=== PATIENT | male | born 1970 | race Caucasian/White ===

== ENCOUNTER 2020-11-15 08:58 | Emergency (ER) | payer BC ==
[~2020-11-15] VITALS: Wt 104.3 kg
[2020-11-15 10:10] LABS: BASO # 0.1 10*3/uL (0.0-0.1); BASO % 0.8 % (0.0-1.0); EOS # 0.1 10*3/uL (0.0-0.4); EOS % 0.7 % (1.0-4.0); HEMATOCRIT 49.9 % (42.0-52.0); LYMPH # 1.5 10*3/uL (1.3-4.4); MEAN CORPUSCULAR HGB 31.5 pg (27.0-31.0); MEAN CORPUSCULAR HGB CONC 33.5 g/dl (33.0-37.0); MEAN PLATELET VOLUME 8.8 fl (9.6-12.3); MONO # 0.9 10*3/uL (0.1-1.0); MONO % 7.7 % (3.0-9.0); NEUT # 9.5 10*3/uL (2.3-7.9); NEUT % 78.2 % (47.0-73.0); PLATELET COUNT AUTOMATED 344 10*3/uL (130-400); RED BLOOD COUNT 5.31 10*6/uL (4.50-5.90); RED CELL DISTRI WIDTH 13.8 % (0-14.5); WHITE BLOOD COUNT 12.2 10*3/uL (4.8-10.8)
[2020-11-15 10:28] LABS: ALBUMIN 3.1 gm/dl (3.1-4.5); ALKALINE PHOSPHATASE 89 U/L (45-117); BUN 10 mg/dl (7-24); CHLORIDE 101 mmol/L (98-107); CREATININE 0.81 mg/dL (0.70-1.30); POTASSIUM 3.9 mmol/L (3.5-5.1); SGOT/AST 16 IU/L (3-35); SGPT/ALT 29 U/L (12-78); SODIUM 133 mmol/L (136-145); TOTAL PROTEIN 7.3 gm/dL (6.4-8.2)
[2020-11-15 10:31] LABS: TROPONIN I < 0.015 ng/ml (<0.045)
[2020-11-22] MEDS ORDERED: NATURE'S BLEND F1 MG PO (12:36)
[2020-11-22] MEDS ORDERED: ATORVASTATIN CA40 M1 PO (12:36)
[2020-11-22] MEDS ORDERED: ELIQUIS5 M1 PO (12:36)
[2020-11-22] MEDS ORDERED: VITAMIN B-1100 M1 PO (12:36)
[2020-11-22] MEDS ORDERED: METOPROLOL SUCC50 M1 PO (12:36)
== END 2020-11-15 12:00 | disposition left against medical advice (07) ==
LOC: ED 08:58
PROVIDERS: Student in an Organized Health Care Education/Training Program
DX: I48.91 Unspecified atrial fibrillation (principal); Z88.0 Allergy status to penicillin

== ENCOUNTER → 2021-01-14 | Outpatient (CLI) | payer BC, MEDICAID ==
[~2021-01-14] MED LIST: ATORVASTATIN CA40 M1 PO; ELIQUIS5 M1 PO; METOPROLOL SUCC50 M1 PO; NATURE'S BLEND F1 MG PO; VITAMIN B-1100 M1 PO
[2021-01-14 09:32] LABS: ALBUMIN 3.4 gm/dl (3.1-4.5)
[2021-01-14 09:34] LABS: TOTAL PROTEIN 7.8 gm/dL (6.4-8.2)
[2021-01-15 13:07] LABS: SJOGREN ANTI-SS-A <0.2 AI (0.0-0.9); SJOREN AB, ANTI-SS-B <0.2 AI (0.0-0.9)
[2021-01-15 15:07] LABS: ALDOLASE 5.7 U/L (3.3-10.3)
[2021-01-17 15:07] LABS: ALBUMIN 3.5 g/dL (2.9-4.4); ALPHA-1-GLOBULIN 0.3 g/dL (0.0-0.4); ALPHA-2-GLOBULIN 0.9 g/dL (0.4-1.0); BETA GLOBULIN 1.1 g/dL (0.7-1.3); GAMMA GLOBULIN 1.4 g/dL (0.4-1.8); GLOBULIN, TOTAL 3.6 g/dL (2.2-3.9); M-SPIKE Comment: g/dL (Not Observed); TOTAL PROTEIN, SERUM 7.1 g/dL (6.0-8.5)
== END | disposition home or self-care (01) ==
LOC: LAB 08:37
PROVIDERS: ATTEND Psychiatry & Neurology Clinical Neurophysiology
DX: M47.816 Spondylosis without myelopathy or radiculopathy, lumbar region (principal); M46.02 Spinal enthesopathy, cervical region; M48.02 Spinal stenosis, cervical region; G44.329 Chronic post-traumatic headache, not intractable; G44.309 Post-traumatic headache, unspecified, not intractable; R26.89 Other abnormalities of gait and mobility; M99.01 Segmental and somatic dysfunction of cervical region; Z86.73 Personal history of transient ischemic attack (TIA), and cerebral infarction without residual deficits

== ENCOUNTER → 2021-05-30 | Outpatient (CLI) | payer BC, OTHER ==
[2021-06-02 06:35] LABS: TESTOSTERONE FREE, (DIRECT) 7.6 pg/mL (7.2-24.0)
== END | disposition home or self-care (01) ==
LOC: LAB 10:52
PROVIDERS: ATTEND Family Medicine
DX: R53.83 Other fatigue (principal)

== ENCOUNTER 2023-08-16 03:08 | Emergency (ER) | payer OTHER ==
[~2023-08-16] VITALS: Ht 182.8 cm; Wt 123.5 kg
[2023-08-16] MEDS ORDERED: MULTIVITAMIN CONCENTRATE (IV) 10 ML,Thiamine 100 MG,FOLIC ACID 1 MG in SODIUM CHLORIDE ... IV ONE (03:20)
[2023-08-16 03:40] LABS: BASO # 0.1 10*3/uL (0.0-0.1); BASO % 0.9 % (0.0-1.0); EOS # 0.1 10*3/uL (0.0-0.4); EOS % 1.2 % (1.0-4.0); LYMPH # 3.5 10*3/uL (1.3-4.4); LYMPH % 34.7 % (27.0-41.0); MEAN CELL VOLUME 94.1 fl (80.0-94.0); MEAN CORPUSCULAR HGB 31.2 pg (27.0-31.0); MEAN CORPUSCULAR HGB CONC 33.1 g/dl (33.0-37.0); MEAN PLATELET VOLUME 9.2 fl (9.6-12.3); MONO # 0.9 10*3/uL (0.1-1.0); MONO % 8.8 % (3.0-9.0); NEUT # 5.5 10*3/uL (2.3-7.9); NEUT % 53.6 % (47.0-73.0); PLATELET COUNT AUTOMATED 237 10*3/uL (130-400); RED BLOOD COUNT 5.42 10*6/uL (4.50-5.90); RED CELL DISTRI WIDTH 13.2 % (0-14.5); WHITE BLOOD COUNT 10.2 10*3/uL (4.8-10.8)
[2023-08-16] MEDS ORDERED: Thiamine 200 MG/2 ML VIAL IV ONE (03:55)
[2023-08-16] MEDS ORDERED: SODIUM CHLORIDE 0.9% 1,000 ML IV ONE (03:55)
[2023-08-16 04:01] LABS: ALKALINE PHOSPHATASE 103 U/L (46-116); BUN 6 mg/dl (9-23); CHLORIDE 103 mmol/L (98-107); ETHYL ALCOHOL 279.2 mg/dl (<3); LIPASE 40 U/L (12-53); POTASSIUM 3.5 mmol/L (3.4-5.1); SGPT/ALT 55 U/L (5-49); TOTAL PROTEIN 7.2 gm/dL (6.0-8.0)
[2023-08-16 04:04] LABS: BILIRUBIN Negative (Negative); BLOOD Negative (Negative); CLARITY Clear (Clear); COLOR Yellow (Yellow); GLUCOSE Negative (Negative); KETONE Negative (Negative); LEUKO ESTERASE Negative (Negative); NITRITE Negative (Negative); PH 5.5 (4.5-8.0); SPECIFIC GRAVITY <= 1.005 (1.001-1.030); UROBILINOGEN 0.2 E.U./dl (0.0-1.0)
[2023-08-16 04:11] LABS: URINE AMPHETAMINES Negative (1000ng/ml); URINE BARBITURATES Negative (200ng/ml); URINE BENZODIAZEPINES Negative (200ng/ml); URINE CANNABINOIDS (THC) Negative (50ng/ml); URINE COCAINE Negative (300ng/ml); URINE METHADONE Negative (300ng/ml); URINE OPIATES Negative (300ng/ml); URINE PHENCYCLIDINE Negative (25ng/ml)
[2023-08-16 04:23] LABS: EPITHELIAL CELLS 0-2; WBC 0-2 wbc/hpf (0-5)
== END 2023-08-16 11:15 | disposition home or self-care (01) ==
LOC: ED 03:08
PROVIDERS: Internal Medicine
DX: F10.129 Alcohol abuse with intoxication, unspecified (principal); I48.91 Unspecified atrial fibrillation; F10.10 Alcohol abuse, uncomplicated; F17.200 Nicotine dependence, unspecified, uncomplicated; Y90.8 Blood alcohol level of 240 mg/100 ml or more; Z88.0 Allergy status to penicillin; W19.XXXA Unspecified fall, initial encounter